=== PATIENT | female | born 1955 | race Caucasian/White ===

== ENCOUNTER 2016-08-08 16:46 | Emergency (ER) | payer BC, OTHER, SELFPAY ==
--- NOTE | 2016-08-08 16:53 | EDM.PDOC ---
ED HPI GENERAL MEDICAL PROBLEM - General Chief Complaint: General Stated Complaint: R foot pain Time Seen by Provider: 08/08/16 16:46 Source of Information: Reports: Patient, Old records ([facility] chart/EMR) History Limitations: Reports: No limitations - History of Present Illness INITIAL COMMENTS - FREE TEXT/NARRATIVE: The patient drove herself to the emergency room via private automobile for evaluation of progressive right foot pain and dorsal foot swelling with patient rating her discomfort at 6/10. She was going down a step in her garage at about 13:00 hours when she twisted her foot and had a minor fall with no significant injury, including history of head injury, loss of consciousness, change in mental status, neck/back pain, paresthesias, neurological deficits, or other complaints or injuries. She did return to work with progressive symptoms since that time. 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: Other (see below) (None) Right Upper Feet Pain Score (Numeric/FACES): 6 - Related Data Allergies Allergy/AdvReac Type Severity Reaction Status Date / Time cephalexin monohydrate Allergy Unknown Hives Verified 08/08/16 16:50 [From Keflex] clindamycin Allergy Unknown Hives Verified 08/08/16 16:50 Sulfa (Sulfonamide Allergy Unknown Rash Verified 08/08/16 16:50 Antibiotics) tetracycline [Tetracycline] Allergy Unknown Hives Verified 08/08/16 16:50 Home Meds: Home Meds Adapalene 1 applic TOP DAILY 08/08/16 [History] Clindamycin Phosphate 1 applic TOP DAILY 08/08/16 [History] Past Medical History HEENT History: Reports: Impaired vision, Other (see below). Denies: Allergic rhinitis, Cataract, Glaucoma, Hard of hearing, Macular degeneration, Retinal detachment Other HEENT History: Glasses, multiple food allergies, nasal septum deviation Cardiovascular History: Reports: High cholesterol, Syncope. Denies: Afib, Aneurysm, Arrhythmia, Blood clots/VTE/DVT, CAD, Heart murmur, Hypertension, NV, PVD Other Cardiovascular History: Possible syncope versus anaphylactic seizure-? In about 2009 of unknown etiology, hyperlipidemia not currently under therapy Respiratory History: Reports: Asthma, COPD, Intubation, previous, Other (see below). Denies: Bronchitis, recurrent, PE, Pneumonia, recurrent, Pneumothorax, Sleep apnea, TB Other Respiratory History: COPD by chest x-ray with no current therapy Gastrointestinal History: Reports: Chronic diarrhea, Diverticulosis, Gastritis, Irritable bowel syndrome, Other (see below). Denies: Celiac disease, Cholelithiasis, Chronic constipation, Colon polyp, GERD, GI bleed, Hepatitis, Inflammatory bowel disease, Jaundice, Pancreatitis, PUD Other Gastrointestinal History: Sigmoid diverticulosis by colonoscopy, benign right hepatic hemangioma Genitourinary History: Reports: None. 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 Denies: Ectopic , Endometriosis, Fibroids, PID : 6 Para: 4 (Full term without complications during pregnancies or deliveries) LMP (Approximate): Menopausal (Surgical menopause as below) Musculoskeletal History: Reports: Arthritis, Back pain, chronic, Fracture, Neck pain, chronic, Osteoarthritis, Other (see below). Denies: Amputation, Gout, RA , SLE Other Musculoskeletal History: Scoliosis, cuboid fracture of either the left or right foot in about 2006, distal phalangeal fracture of digit #4 of the right foot in 2016, recurrent myalgias Neurological History: Reports: Headaches, chronic, Seizure, Other (see below). Denies: Cerebral aneurysms, Concussion, CVA, Head trauma, Migraines, MS, Parkinson's, TIA Other Neuro History: Possible anaphylactic seizure versus syncopal episode as above Psychiatric History: Reports: Anxiety, Depression. Denies: Abuse, victim of, ADD, ADHD, Addiction, Psych Hospitalization(s), PTSD, Suicide attempt, Suicidal ideation Endocrine/Metabolic History: Reports: Vitamin D deficiency. Denies: Diabetes, type I, Diabetes, type II, Hypothyroidism, IDDM Hematologic History: Reports: Anemia, Iron deficiency, Other (see below). Denies: B12 deficiency, Blood transfusion(s) Other Hematologic History: Iron deficiency anemia as a teenager Immunologic History: Reports: None. Denies: AIDS, HIV, SLE Oncologic (Cancer) History: Reports: None. Denies: Basal cell carcinoma, Cervix , Colon, Hodgkin's Lymphoma, Leukemia, Malignant melanoma, Metastatic, Non- Hodgkin's Lymphoma, Squamous cell carcinoma Dermatologic History: Reports: Angiodema, Urticaria, Other (see below). Denies : Eczema, Melanoma Other Dermatologic History: Anaphylactic seizure and allergic reaction in about 2009 as above, acne - Infectious Disease History Infectious Disease History: Reports: C-difficile (In 2014), Chicken pox, Measles , Mumps, Rubella. Denies: Meningitis, Mononucleosis, MRSA, Pertussis (whooping cough), Rheumatic Fever, Scarlet fever, Shingles, TB, VRE - Past Surgical History Head Surgeries/Procedures: Reports: None HEENT Surgical History: Reports: Oral surgery. Denies: Adenoidectomy, Cataract surgery, Eye surgery, Laser surgery, Myringotomy w tube(s), Naso-sinus surgery, Tonsillectomy Other HEENT Surgeries/Procedures: [place] teeth extraction x4 at age 19 Cardiovascular Surgical History: Reports: None. Denies: Varicose, Vascular surgery Respiratory Surgical History: Reports: None. Denies: Thoracentesis GI Surgical History: Reports: Colonoscopy (Last colonoscopy on 04/09/13). Denies : Appendectomy, Cholecystectomy, EGD, Hernia, abdominal, Hernia, inguinal, Hernia repair/other, Polypectomy Female Surgical History: Reports: D&C, Dilitation & evacuation, Hysterectomy , Tubal ligation, Other (see below). Denies: Breast biopsy, Oophorectomy, Salpingo-oophorectomy Other Female Surgeries/Procedures: Hysterectomy in 1999 secondary to dysfunctional uterine bleeding, previous bilateral tubal ligation, previous D&C x2 one for an elective and the other for a first trimester SAB Endocrine Surgical History: Reports: None. Denies: Thyroid biopsy Neurological Surgical History: Reports: None. Denies: C-Spine, Discectomy, Laminectomy, Lumbar spine, Spinal fusion, Vertebroplasty Musculoskeletal Surgical History: Reports: None. Denies: Arthroscopic procedure , Carpal tunnel, Ganglion cyst, Joint replacement, ORIF, Shoulder surgery Oncologic Surgical History: Reports: None. Denies: Biopsy of breast Dermatological Surgical History: Reports: None - Past Imaging History Past Imaging History: Reports: Carotid US (02/26/14 and 02/27/13), CAT scan (CT of the chest on 01/04/12, CT of the abdomen and pelvis with contrast on 01/03/11, CT of the maxillofacial bones and brain on 04/15/09, CT of the facial bones on 01/13/11), Mammogram (Last on 02/20/13), MRI (MRI of Left shoulder on 03/22/16 and , MRI of the abdomen on 01/17/11), Upper GI x-ray/series (In about 2002 by patient history) Social & Family History - Family History Other Family History: Daughter with postoperative at 4-1/2 months of age for repair of cleft palate - Tobacco Use Smoking Status *Q: Former Smoker Tobacco Use Within Last Twelve Months: Cigarettes Years of Tobacco use: 40 Packs/Tins Daily: 0.5 (Smoked between ages 18 and 58) Used Tobacco, but Quit: Yes Smoking Cessation Information Provided To Patient: No Second Hand Smoke Exposure: No Second Hand Smoke Education Provided: No - Caffeine Use Caffeine Use: Reports: Coffee (2 cups per day), Soda (3 sodas per day). Denies : Energy drinks, Tea - Alcohol Use Alcohol Use History: No Days Per Week of Alcohol Use: 0 (No previous DWIs, problems with alcohol abuse, etc.) Alcohol Use in Last Twelve Months: No - Recreational Drug Use Recreational Drug Use: Yes Drug Use in Last 12 Months: Yes Recreational Drug Type: Reports: Marijuana/Hashish (Started using marijuana at age 22 and continues to use monthly). 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 Denies: fever, chills, weakness, fatigue , night sweats, decreased appetite HEENT: Reports: Glasses. Denies: Dental pain, Ear pain, Eye discharge, Hearing loss, Rhinitis, Sinus problem, Throat pain, Vertigo, Vision change Respiratory: Reports: No Symptoms. Denies: Shortness of Breath, Wheezing, Pleuritic Chest Pain, Cough Cardiovascular: Reports: No symptoms. Denies: Chest pain, Blood pressure problem, Claudication, Dyspnea on exertion, Edema, Lightheadedness, Orthopnea, Palpitations, PND, Syncope Endocrine: Reports: no symptoms. Denies: fatigue GI/Abdominal: Reports: Diarrhea (Chronic-stable). Denies: Abdominal pain, Anorexia, Black stool, Bloody stool, Decreased appetite, Difficulty swallowing, Distension, Flatus, Hematemesis, Hematochezia, Melena, Nausea, Stool incontinence, Vomiting : Reports: no symptoms. Denies: discharge, dysuria, flank pain, frequency, hematuria, incontinence, pain, urgency, urinary retention Musculoskeletal: Reports: foot pain. Denies: neck pain, shoulder pain, arm pain , back pain, hand pain, leg pain, joint swelling, muscle pain Skin: Reports: no symptoms. Denies: cyanosis, diaphoresis, bruising, wound Neurological: Reports: Difficulty Walking (Secondary to foot pain). Denies: Confusion, Dizziness, Numbness, Paresthesia, Seizure, Syncope, Tingling, Weakness, Gait Disturbance Psychiatric: Reports: No symptoms Hematologic/Lymphatic: Reports: no symptoms Immunologic: Reports: no symptoms ED EXAM, GENERAL - Physical Exam Exam: See Below Exam Limited By: No limitations General Appearance: alert, WD/WN, no apparent distress Head: atraumatic, normocephalic Neck: normal inspection, supple, non-tender, full range of motion. No: lymphadenopathy (L), lymphadenopathy (R), thyromegaly Respiratory/Chest: no respiratory distress, lungs clear, normal breath sounds, no accessory muscle use, chest non-tender. No: pleural rub, retractions Cardiovascular: normal peripheral pulses, regular rate, rhythm, no edema, no gallop, no JVD, no murmur, no rub. No: gallop/S3, gallop/S4, friction rub Peripheral Pulses: 2+: radial (L), radial (R), dorsalis pedis (L), dorsalis pedis (R) GI/Abdominal: normal bowel sounds, soft, non tender, no organomegaly, no distention, no abnormal bruit, no mass. No: guarding (Female) Exam: Deferred Rectal (Female) Exam: Deferred Back Exam: normal inspection, full range of motion, other (Scoliosis present). No: CVA tenderness (L), CVA tenderness (R), muscle spasm Extremities: normal range of motion, no pedal edema, normal capillary refill, other (Mild swelling over the dorsal proximal aspect of the right foot with no deformity, ecchymosis, crepitation, etc. Right ankle and knee also appear normal with no instability or localized tenderness). No: pedal edema, Shayna's Sign, leg pain Neurological: alert, oriented, CN II-XII intact, normal cognition, normal gait, no motor/sensory deficits. No: normal reflexes, confused Psychiatric: normal affect, normal mood Skin Exam: Warm, Dry, Intact, Normal color, No rash, Tattoo(s) (Large tattoo over her anterior right tibial region). No: Diaphoretic, Wound/incision Lymphatic: no adenopathy Course - Vital Signs Last Recorded V/S: Last Vital Signs Temp 36.9 C 08/08/16 17:00 Pulse 91 08/08/16 17:00 Resp 16 08/08/16 17:00 BP 118/70 08/08/16 17:00 Pulse Ox 99 08/08/16 17:00 Vital Signs - 24 hr 08/08/16 17:00 Temperature [ 36.9 C Oral] Pulse, 91 Peripheral [ Pulse Oximetry] Respiratory 16 Rate Blood Pressure 118/70 [Right Upper Arm] O2 Sat by Pulse 99 Oximetry - Orders/Labs/Meds Orders: Active Orders 24 hr Category Date Time Status Foot Comp Min 3V Rt [CR] Stat Exams 08/08/16 16:53 Taken Durable Medical Equipment for Discharge [DME for Oth 08/08/16 17:21 Ordered Discharge] [COMM] Routine Durable Medical Equipment for Discharge [DME for Oth 08/08/16 17:21 Ordered Discharge] [COMM] Routine Durable Medical Equipment for Discharge [DME for Ot 08/08/16 17:22 Ordered Discharge] [COMM] Routine Obtain Past Medical Record [OM.PC] Routine Oth 08/08/16 16:53 Active Labs: None Meds: None - Radiology Interpretation Free Text/Narrative:: X-rays of the right foot, complete, shows evidence of probable spur versus questionable avulsion fracture/? Old injury over the cuboid region with no evidence of dislocation, etc. Mild to moderate osteoarthritic changes noted Departure - Departure Time of Disposition: 17:48 Disposition: Home, Self-Care 01 Condition: good Clinical Impression: Mixed anxiety depressive disorder Sprain of foot, right Qualifiers: Encounter type: initial encounter Qualified Code(s): S93.601A - Unspecified sprain of right foot, initial encounter Osteoarthritis Qualifiers: Osteoarthritis location: multiple joints Osteoarthritis type: primary Qualified Code(s): M15.0 - Primary generalized (osteo)arthritis Irritable bowel syndrome Qualifiers: Irritable bowel syndrome type: with diarrhea Qualified Code(s): K58.0 - Irritable bowel syndrome with diarrhea Instructions: Foot Sprain, Crutch Use Referrals: Valeria Luevano PA-C [Primary Care Provider] - Forms: ED Department Discharge Additional Instructions: 1. Follow up with your regular provider in 10-14 days as needed, if symptoms persist. 2. Tylenol 650 mg by mouth every 4 hours and/or OTC ibuprofen 2-3 tabs by mouth every 6 hours with food as directed./needed. 3. Use crutches, Sohail wrap, and postoperative shoe as directed with limited weightbearing until symptoms resolve as discussed 4. Leg elevation and ice packs as needed/discussed - Problem List & Annotations (1) Sprain of foot, right SNOMED Code(s): 88749110 Code(s): S93.601A - UNSPECIFIED SPRAIN OF RIGHT FOOT, INITIAL ENCOUNTER Status: Acute Priority: High Current Visit: Yes Onset Date: 08/08/16 Annotation/Comment:: Sohail wrap and postoperative shoe applied by the nurse. Activity restrictions, etc. discussed. The patient does not need a work excuse by her history. Crutches also provided Qualifiers: Encounter type: initial encounter Qualified Code(s): S93.601A - Unspecified sprain of right foot, initial encounter (2) Osteoarthritis SNOMED Code(s): 979078877 Code(s): M19.90 - UNSPECIFIED OSTEOARTHRITIS, UNSPECIFIED SITE Status: Chronic Priority: Medium Current Visit: Yes Annotation/Comment:: Stable by history Qualifiers: Osteoarthritis location: multiple joints Osteoarthritis type: primary Qualified Code(s): M15.0 - Primary generalized (osteo)arthritis (3) Irritable bowel syndrome SNOMED Code(s): 85577801, 81489947 Code(s): K58.9 - IRRITABLE BOWEL SYNDROME WITHOUT DIARRHEA Status: Chronic Priority: Medium Current Visit: Yes Annotation/Comment:: Stable by history Qualifiers: Irritable bowel syndrome type: with diarrhea Qualified Code(s): K58.0 - Irritable bowel syndrome with diarrhea (4) Mixed anxiety depressive disorder SNOMED Code(s): 198151266 Code(s): F41.8 - OTHER SPECIFIED ANXIETY DISORDERS Status: Chronic Priority: Medium Current Visit: Yes Annotation/Comment:: Stable by history - Problem List Review Problem List Initiated/Reviewed/Updated: Yes - My Orders Last 24 Hours: My Active Orders 08/08/16 16:53 Foot Comp Min 3V Rt [CR] Stat Obtain Past Medical Record [OM.PC] Routine 08/08/16 17:21 Durable Medical Equipment for Discharge [DME for Discharge] [COMM] Routine Durable Medical Equipment for Discharge [DME for Discharge] [COMM] Routine 08/08/16 17:22 Durable Medical Equipment for Discharge [DME for Discharge] [COMM] Routine - Assessment/Plan Last 24 Hours: My Active Orders 08/08/16 16:53 Foot Comp Min 3V Rt [CR] Stat Obtain Past Medical Record [OM.PC] Routine 08/08/16 17:21 Durable Medical Equipment for Discharge [DME for Discharge] [COMM] Routine Durable Medical Equipment for Discharge [DME for Discharge] [COMM] Routine 08/08/16 17:22 Durable Medical Equipment for Discharge [DME for Discharge] [COMM] Routine Assessment:: As above Plan: As above. Extensive precautions were given to the patient, who is in agreement with the treatment plan. See Patient Instructions for further treatment and plan.
[2016-08-08 17:09] VITALS: BP 118/70
== END 2016-08-08 17:48 | disposition home or self-care (01) ==
LOC: LL.ED 16:46
DX: S93.601A Unspecified sprain of right foot, initial encounter (principal); F41.8 Other specified anxiety disorders; K58.0 Irritable bowel syndrome with diarrhea; M15.0 Primary generalized (osteo)arthritis; Z88.1 Allergy status to other antibiotic agents; Z88.2 Allergy status to sulfonamides; Z79.899 Other long term (current) drug therapy; W50.2XXA Accidental twist by another person, initial encounter; F17.210 Nicotine dependence, cigarettes, uncomplicated
CPT/HCPCS: 73630-RT; 99283

== ENCOUNTER 2016-09-15 13:38 | Emergency (ER) | payer MEDICAID, OTHER ==
[2016-09-15 14:10] VITALS: BP 90/61
--- NOTE | 2016-09-15 15:17 | EDM.PDOC ---
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 She stepped aside and inadvertently triggered her nail gun. One nail entered the are above the right knee. She removed the sharri nail using a pant leg. When she bended the knee there was a squirt of blood. Last had a tetanus immunization a 3 years ago when she had a similar sharri nail in the right knee. 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 [No Known Home Meds] 09/15/16 [History] Past Medical History HEENT History: Reports: Impaired Vision, Other (See Below) Other HEENT History: Glasses, multiple food allergies, nasal septum deviation Cardiovascular History: Reports: High Cholesterol, Syncope Other Cardiovascular History: Possible syncope versus anaphylactic seizure-? In about 2009 of unknown etiology, hyperlipidemia not currently under therapy Respiratory History: Reports: Asthma, COPD, Intubation, Previous, Other (See Below) Other Respiratory History: COPD by chest x-ray with no current therapy Gastrointestinal History: Reports: Chronic Diarrhea, Diverticulosis, Gastritis, Irritable Bowel Syndrome, Other (See Below) Other Gastrointestinal History: Sigmoid diverticulosis by colonoscopy, benign right hepatic hemangioma Genitourinary History: Reports: None. 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: Dysfunctional Uterine Bleeding, , Spontaneous Musculoskeletal History: Reports: Arthritis, Back Pain, Chronic, Fracture, Neck Pain, Chronic, Osteoarthritis, Other (See Below) Other Musculoskeletal History: Scoliosis, cuboid fracture of either the left or right foot in about 2006, distal phalangeal fracture of digit #4 of the right foot in 2016, recurrent myalgias Neurological History: Reports: Headaches, Chronic, Seizure, Other (See Below) Other Neuro History: Possible anaphylactic seizure versus syncopal episode as above Psychiatric History: Reports: Anxiety, Depression Endocrine/Metabolic History: Reports: Vitamin D Deficiency Hematologic History: Reports: Anemia, Iron Deficiency, Other (See Below) Other Hematologic History: Iron deficiency anemia as a teenager Immunologic History: Reports: None Oncologic (Cancer) History: Reports: None Dermatologic History: Reports: Angiodema, Urticaria, Other (See Below) Other Dermatologic History: Anaphylactic seizure and allergic reaction in about 2009 as above, acne - Infectious Disease History Infectious Disease History: Reports: C-Difficile, Chicken Pox, Measles, Mumps, Rubella - Past Surgical History Head Surgeries/Procedures: Reports: None HEENT Surgical History: Reports: Oral Surgery Female Surgical History: Reports: D&C, Dilitation & Evacuation, Hysterectomy , Tubal Ligation, Other (See Below) Oncologic Surgical History: Reports: None - Past Imaging History Past Imaging History: Reports: Carotid US, CAT Scan, Mammogram, MRI, Upper GI X- Ray/Series Social & Family History - Tobacco Use Smoking Status *Q: Former Smoker Years of Tobacco use: 40 Packs/Tins Daily: 0.5 (Smoked between ages 18 and 58) Used Tobacco, but Quit: Yes Month Tobacco Last Used: 6 years Second Hand Smoke Exposure: No - Caffeine Use Caffeine Use: Reports: Coffee, Soda - Alcohol Use Days Per Week of Alcohol Use: 0 (No previous DWIs, problems with alcohol abuse, etc.) - Recreational Drug Use Recreational Drug Use: No Drug Use in Last 12 Months: Yes Recreational Drug Type: Reports: Marijuana/Hashish (Started using marijuana at age 22 and continues to use monthly). Denies: Amphetamines (Speed), Cocaine, Heroin, Inhalants (Glues, Solvents, Aerosols), LSD (Acid), Methamphetamine, Morphine Recreational Drug Use Frequency: Monthly - Living Situation & Occupation Living situation: Reports: , with Significant Other Occupation: Employed ED ROS GENERAL - Review of Systems Review Of Systems: See Below Constitutional: Reports: No Symptoms ED EXAM, GENERAL - Physical Exam Exam: See Below Exam Limited By: No Limitations General Appearance: Alert Extremities: Normal Range of Motion, No Pedal Edema, Other (1 mm puncture wound above left knee, gopi-medial. No joint effusion. No crepitance. Normal AROM.) Neurological: Alert, Oriented, Normal Cognition Course - Vital Signs Last Recorded V/S: Last Vital Signs Temp 99.5 F 09/15/16 13:48 Pulse 93 09/15/16 13:48 Resp 18 09/15/16 13:48 BP 90/61 09/15/16 13:48 Pulse Ox 100 09/15/16 13:48 - Orders/Labs/Meds Orders: Active Orders 24 hr Category Date Time Status Knee 3V Lt [CR] Stat Exams 09/15/16 14:20 Taken Departure - Departure Time of Disposition: 15:39 Disposition: Home, Self-Care 01 Condition: good Clinical Impression: Puncture wound of right knee Qualifiers: Encounter type: initial encounter Qualified Code(s): S81.031A - Puncture wound without foreign body, right knee, initial encounter - Discharge Information Instructions: Stab Wound Forms: ED Department Discharge Additional Instructions: Take 500 mg Levaquin tablet once a day for 5 days. - My Orders Last 24 Hours: My Active Orders 09/15/16 14:20 Knee 3V Lt [CR] Stat - Assessment/Plan Last 24 Hours: My Active Orders 09/15/16 14:20 Knee 3V Lt [CR] Stat
== END 2016-09-15 16:01 | disposition home or self-care (01) ==
LOC: LL.ED 13:38
DX: S81.031A Puncture wound without foreign body, right knee, initial encounter (principal); Z87.891 Personal history of nicotine dependence; F12.10 Cannabis abuse, uncomplicated; W29.4XXA Contact with nail gun, initial encounter; Y93.H3 Activity, building and construction; Y92.008 Other place in unspecified non-institutional (private) residence as the place of occurrence of the external cause
CPT/HCPCS: 73562-LT; 99283

== ENCOUNTER 2018-12-14 07:29 | Emergency (ER) | payer MEDICAID ==
--- NOTE | 2018-12-14 07:43 | EDM.PDOC ---
ED HPI GENERAL MEDICAL PROBLEM - General Chief Complaint: Genitourinary Problem Stated Complaint: UTI Time Seen by Provider: 12/14/18 07:30 Source of Information: Reports: Patient History Limitations: Reports: No Limitations - History of Present Illness INITIAL COMMENTS - FREE TEXT/NARRATIVE: Patient is a 63-year-old H that for the last 10 days she's had some frequency urgency and hematuria she came in for evaluation at this time. Symptoms worsening in the last couple days Onset: Gradual Duration: Day(s):, Getting Worse Location: Reports: Abdomen Quality: Reports: Burning, Dull (Brawl hypogastric area) Severity: Mild Improves with: Reports: None Worsens with: Reports: None - Related Data Allergies Allergy/AdvReac Type Severity Reaction Status Date / Time cephalexin monohydrate Allergy Unknown Hives Verified 09/15/16 13:47 [From Keflex] clindamycin Allergy Unknown Hives Verified 09/15/16 13:47 Sulfa (Sulfonamide Allergy Unknown Rash Verified 09/15/16 13:47 Antibiotics) tetracycline [Tetracycline] Allergy Unknown Hives Verified 09/15/16 13:47 Home Meds: Home Meds . [No Known Home Meds] 09/15/16 [History] Past Medical History HEENT History: Reports: Impaired Vision, Other (See Below) Other HEENT History: Glasses, multiple food allergies, nasal septum deviation Cardiovascular History: Reports: High Cholesterol, Syncope Other Cardiovascular History: Possible syncope versus anaphylactic seizure-? In about 2009 of unknown etiology, hyperlipidemia not currently under therapy Respiratory History: Reports: Asthma, COPD, Intubation, Previous, Other (See Below) Other Respiratory History: COPD by chest x-ray with no current therapy Gastrointestinal History: Reports: Chronic Diarrhea, Diverticulosis, Gastritis, Irritable Bowel Syndrome, Other (See Below) Other Gastrointestinal History: Sigmoid diverticulosis by colonoscopy, benign right hepatic hemangioma Genitourinary History: Reports: None. 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 History: Reports: Dysfunctional Uterine Bleeding, , Spontaneous Musculoskeletal History: Reports: Arthritis, Back Pain, Chronic, Fracture, Neck Pain, Chronic, Osteoarthritis, Other (See Below) Other Musculoskeletal History: Scoliosis, cuboid fracture of either the left or right foot in about 2006, distal phalangeal fracture of digit #4 of the right foot in 2016, recurrent myalgias Neurological History: Reports: Headaches, Chronic, Seizure, Other (See Below) Other Neuro History: Possible anaphylactic seizure versus syncopal episode as above Psychiatric History: Reports: Anxiety, Depression Endocrine/Metabolic History: Reports: Vitamin D Deficiency Hematologic History: Reports: Anemia, Iron Deficiency, Other (See Below) Other Hematologic History: Iron deficiency anemia as a teenager Immunologic History: Reports: None Oncologic (Cancer) History: Reports: None Dermatologic History: Reports: Angiodema, Urticaria, Other (See Below) Other Dermatologic History: Anaphylactic seizure and allergic reaction in about 2009 as above, acne - Infectious Disease History Infectious Disease History: Reports: C-Difficile, Chicken Pox, Measles, Mumps, Rubella - Past Surgical History Head Surgeries/Procedures: Reports: None HEENT Surgical History: Reports: Oral Surgery Female Surgical History: Reports: D&C, Dilitation & Evacuation, Hysterectomy , Tubal Ligation, Other (See Below) Oncologic Surgical History: Reports: None - Past Imaging History Past Imaging History: Reports: Carotid US, CAT Scan, Mammogram, MRI, Upper GI X- Ray/Series Social & Family History - Caffeine Use Caffeine Use: Reports: Coffee, Soda - Living Situation & Occupation Living situation: Reports: , with Significant Other Occupation: Employed ED ROS GENERAL - Review of Systems Review Of Systems: See Below Constitutional: Reports: No Symptoms HEENT: Reports: No Symptoms Respiratory: Reports: No Symptoms Cardiovascular: Reports: No Symptoms Endocrine: Reports: No Symptoms GI/Abdominal: Reports: Abdominal Pain : Reports: Dysuria, Frequency, Urgency Musculoskeletal: Reports: No Symptoms Skin: Reports: No Symptoms Neurological: Reports: No Symptoms Psychiatric: Reports: No Symptoms Hematologic/Lymphatic: Reports: No Symptoms Immunologic: Reports: Anaphylaxis (Unknown source) ED EXAM, RENAL/ - Physical Exam Exam: See Below Exam Limited By: No Limitations General Appearance: Alert, WD/WN, No Apparent Distress Ears: Normal External Exam, Normal Canal, Hearing Grossly Normal, Normal TMs Nose: Normal Inspection, Normal Mucosa, No Blood Throat/Mouth: Normal Inspection, Normal Lips, Normal Teeth, Normal Gums, Normal Oropharynx, Normal Voice, No Airway Compromise Head: Atraumatic, Normocephalic Neck: Normal Inspection, Supple, Non-Tender, Full Range of Motion Respiratory/Chest: No Respiratory Distress, Lungs Clear, Normal Breath Sounds, No Accessory Muscle Use, Chest Non-Tender Cardiovascular: Normal Peripheral Pulses, Regular Rate, Rhythm, No Edema, No Gallop, No JVD, No Murmur, No Rub GI/Abdominal: Soft, Tender (Right lower quadrant) (Female) Exam: Deferred Rectal (Female) Exam: Deferred Back Exam: Normal Inspection, Full Range of Motion, NT Extremities: Normal Inspection, Normal Range of Motion, Non-Tender, Normal Capillary Refill, No Pedal Edema Psychiatric: Normal Affect, Normal Mood Skin Exam: Warm, Dry, Intact, Normal Color, No Rash Course - Vital Signs Last Recorded V/S: Last Vital Signs Temp 97.6 F 12/14/18 07:42 Pulse 82 12/14/18 07:42 Resp 14 12/14/18 07:42 BP 139/60 12/14/18 07:42 Pulse Ox 98 12/14/18 07:42 - Orders/Labs/Meds Orders: Active Orders 24 hr Category Date Time Status CULTURE URINE [RM] Stat Lab 12/14/18 07:32 Ordered Labs: Laboratory Tests 12/14/18 Range/Units 07:31 Specimen Type Urinvoid Urine Color Light yellow Urine Appearance Slightly cloudy Urine pH 6.0 (5.0-9.0) Ur Specific [place] <= 1.005 (1.005-1.030) Urine Protein Negative (NEGATIVE) mg/dL Urine Glucose (UA) Negative (NEGATIVE) mg/dL Urine Ketones Negative (NEGATIVE) mg/dL Urine Occult Blood Moderate H (NEGATIVE) Urine Nitrite Negative (NEGATIVE) Urine Bilirubin Negative (NEGATIVE) Urine Urobilinogen 0.2 (0.2-1.0) E.U./dL Ur Leukocyte Esterase Moderate H (NEGATIVE) Urine RBC 0-5 /HPF Urine WBC 40-50 H /HPF Ur Epithelial Cells Few /LPF Urine Bacteria Moderate H (NONE TO FEW) /HPF Urinalysis Comment Departure - Departure Time of Disposition: 07:58 Disposition: Home, Self-Care 01 Condition: Fair Clinical Impression: UTI, Urinary tract infectious disease - Discharge Information *PRESCRIPTION DRUG MONITORING PROGRAM REVIEWED*: No *COPY OF PRESCRIPTION DRUG MONITORING REPORT IN PATIENT SANDI: No Instructions: Urinary Tract Infection, Adult, [id number] Referrals: Valeria Luevano PA-C [Primary Care Provider] - Forms: ED Department Discharge Care Plan Goals: Patient will be started on Cipro 500 mg twice a day for 7 days patient is to return if not better or worsening. Continued grade 2 through - My Orders Last 24 Hours: My Active Orders 12/14/18 07:32 CULTURE URINE [RM] Stat - Assessment/Plan Last 24 Hours: My Active Orders 12/14/18 07:32 CULTURE URINE [RM] Stat
[2018-12-14 07:45] VITALS: BP 139/60; PULSE 82
== END 2018-12-14 08:05 | disposition home or self-care (01) ==
LOC: LL.ED 07:29
DX: N39.0 Urinary tract infection, site not specified (principal); N18.9 Chronic kidney disease, unspecified; Z88.8 Allergy status to other drugs, medicaments and biological substances; Z88.2 Allergy status to sulfonamides; Z88.1 Allergy status to other antibiotic agents; Z86.2 Personal history of diseases of the blood and blood-forming organs and certain disorders involving the immune mechanism
CPT/HCPCS: 81001; 87086; 87088; 87186; 99283

== ENCOUNTER 2021-04-02 08:46 | Emergency (ER) | payer OTHER, SELFPAY ==
--- NOTE | 2021-04-02 09:45 | EDM.PDOC ---
ED HPI GENERAL MEDICAL PROBLEM - General Chief Complaint: Genitourinary Problem Stated Complaint: back pain, tired, urine pink Time Seen by Provider: 04/02/21 09:30 Source of Information: Reports: Patient History Limitations: Reports: No Limitations - History of Present Illness INITIAL COMMENTS - FREE TEXT/NARRATIVE: Patient presents to the ED for frequency and urgency of her urination for the last day. Had some minor left flank pain yesterday. No fevers or chills. normal bowel movements. Has a recent history of UTi on 02/09/2021. was Proteus mirabilis and was initially started on macrobid but then changed after culture was back. Thinks it was gone, unsure. has a history of c diff, concerned about needing antibiotics again,. Onset: Today - Related Data Allergies Allergy/AdvReac Type Severity Reaction Status Date / Time cephalexin monohydrate Allergy Unknown Hives Verified 04/02/21 08:59 [From Keflex] clindamycin Allergy Unknown Hives Verified 04/02/21 08:59 Sulfa (Sulfonamide Allergy Unknown Rash Verified 04/02/21 08:59 Antibiotics) tetracycline [Tetracycline] Allergy Unknown Hives Verified 04/02/21 08:59 Home Meds: Home Meds Saccharomyces Boulardii [Florastor] 250 mg PO DAILY #14 cap 04/02/21 [Rx] Past Medical History HEENT History: Reports: Impaired Vision, Other (See Below) Other HEENT History: Glasses, multiple food allergies, nasal septum deviation Cardiovascular History: Reports: High Cholesterol, Syncope Other Cardiovascular History: Possible syncope versus anaphylactic seizure-? In about 2009 of unknown etiology, hyperlipidemia not currently under therapy Respiratory History: Reports: Asthma, COPD, Intubation, Previous, Other (See Below) Other Respiratory History: COPD by chest x-ray with no current therapy Gastrointestinal History: Reports: Chronic Diarrhea, Diverticulosis, Gastritis, Irritable Bowel Syndrome, Other (See Below) Other Gastrointestinal History: Sigmoid diverticulosis by colonoscopy, benign right hepatic hemangioma Genitourinary History: Reports: None. 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: Reports: Dysfunctional Uterine Bleeding, , Spontaneous Musculoskeletal History: Reports: Arthritis, Back Pain, Chronic, Fracture, Neck Pain, Chronic, Osteoarthritis, Other (See Below) Other Musculoskeletal History: Scoliosis, cuboid fracture of either the left or right foot in about 2006, distal phalangeal fracture of digit #4 of the right foot in 2016, recurrent myalgias Neurological History: Reports: Headaches, Chronic, Seizure, Other (See Below) Other Neuro History: Possible anaphylactic seizure versus syncopal episode as above Psychiatric History: Reports: Anxiety, Depression Endocrine/Metabolic History: Reports: Vitamin D Deficiency Hematologic History: Reports: Anemia, Iron Deficiency, Other (See Below) Other Hematologic History: Iron deficiency anemia as a teenager Immunologic History: Reports: None Oncologic (Cancer) History: Reports: None Dermatologic History: Reports: Angiodema, Urticaria, Other (See Below) Other Dermatologic History: Anaphylactic seizure and allergic reaction in about 2009 as above, acne - Infectious Disease History Infectious Disease History: Reports: C-Difficile, Chicken Pox, Measles, Mumps, Rubella - Past Surgical History Head Surgeries/Procedures: Reports: None HEENT Surgical History: Reports: Oral Surgery Female Surgical History: Reports: D&C, Dilitation & Evacuation, Hysterectomy, Tubal Ligation, Other (See Below) Oncologic Surgical History: Reports: None - Past Imaging History Past Imaging History: Reports: Carotid US, CAT Scan, Mammogram, MRI, Upper GI X- Ray/Series Social & Family History - Caffeine Use Caffeine Use: Reports: Coffee, Soda - Recreational Drug Use Recreational Drug Use: No Drug Use in Last 12 Months: No - Living Situation & Occupation Living situation: Reports: , with Significant Other Occupation: Employed ED ROS GENERAL - Review of Systems Review Of Systems: See Below Constitutional: Reports: No Symptoms. Denies: Fever, Chills, Malaise, Weakness, Fatigue HEENT: Reports: No Symptoms. Denies: Rhinitis, Throat Pain Respiratory: Reports: No Symptoms. Denies: Shortness of Breath, Cough Cardiovascular: Reports: No Symptoms. Denies: Chest Pain GI/Abdominal: Reports: No Symptoms. Denies: Abdominal Pain, Black Stool, Bloody Stool, Diarrhea, Nausea : Reports: Frequency, Urgency Musculoskeletal: Reports: No Symptoms Skin: Reports: No Symptoms Neurological: Reports: No Symptoms ED EXAM, RENAL/ - Physical Exam Exam: See Below Exam Limited By: No Limitations General Appearance: Alert, WD/WN, No Apparent Distress Ears: Normal External Exam, Normal Canal Nose: Normal Inspection Throat/Mouth: Normal Inspection, Normal Lips, Normal Oropharynx, Normal Voice, No Airway Compromise Head: Atraumatic Neck: Normal Inspection Respiratory/Chest: No Respiratory Distress, Lungs Clear, Normal Breath Sounds Cardiovascular: Regular Rate, Rhythm, No Edema GI/Abdominal: Normal Bowel Sounds, Soft, Non-Tender Back Exam: No: CVA Tenderness (L), CVA Tenderness (R) Neurological: Alert, Oriented Course - Orders/Labs/Meds Labs: Laboratory Tests 04/02/21 Range/Units 08:47 Specimen Type Urincc Urine Color Yellow Urine Appearance Slightly cloudy Urine pH 6.0 (5.0-9.0) Ur Specific [place] 1.010 (1.005-1.030) Urine Protein Negative (NEGATIVE) mg/dL Urine Glucose (UA) Negative (NEGATIVE) mg/dL Urine Ketones Negative (NEGATIVE) mg/dL Urine Occult Blood Large H (NEGATIVE) Urine Nitrite Negative (NEGATIVE) Urine Bilirubin Negative (NEGATIVE) Urine Urobilinogen 0.2 (0.2-1.0) E.U./dL Ur Leukocyte Esterase Large H (NEGATIVE) Urine RBC 0-5 /HPF Urine WBC 75-100 H /HPF Ur Epithelial Cells Rare /LPF Urine Bacteria Few (NONE TO FEW) /HPF - Re-Assessments/Exams Free Text/Narrative Re-Assessment/Exam: 04/02/21 10:31 did access her bolckow chart, was on macrobid and culture grew proteus, resistant to macrobid. Given patient allergies to medications, will choose augmentin to treat as last culture was sensitive. will start a probiotic to prevent c diff. Will call for needs for changes as culture is pending. understands to return for fever, worsening pain, etc. Will recheck urine after treatment to ensure clearing. Given 4 days of augmentin from ER stock Departure - Departure Time of Disposition: 09:42 Disposition: Home, Self-Care 01 Condition: Good Clinical Impression: UTI, Urinary tract infectious disease - Discharge Information Prescriptions: Saccharomyces Boulardii [Florastor] 250 mg PO DAILY #14 cap Instructions: Urinary Tract Infection, Adult, [id number] Referrals: Valeria Luevano PA-C [Primary Care Provider] - Forms: ED Department Discharge Additional Instructions: You are given augmentin to be taken one tablet twice a day until gone. Get a probiotic and take for the next week. You can get the best one behind the counter at the pharmacy that need refrigeration. Make appointment to follow up with a urine after treatment to ensure that you have cleared the infection, Return to the ED for fever, worsening pain, vomiting. You will contacted as to needs for changes in antibiotics as culture is pending
[2021-04-02 16:40] VITALS: BP 128/52; PULSE 68
== END 2021-04-02 10:10 | disposition home or self-care (01) ==
LOC: LL.ED 08:46
DX: N39.0 Urinary tract infection, site not specified (principal); J44.9 Chronic obstructive pulmonary disease, unspecified; Z88.2 Allergy status to sulfonamides; Z88.8 Allergy status to other drugs, medicaments and biological substances; Z79.899 Other long term (current) drug therapy; Z90.710 Acquired absence of both cervix and uterus
CPT/HCPCS: 81001; 99284